=== PATIENT | male | born 1995 | race Caucasian/White ===

== ENCOUNTER 2019-07-19 18:19 | Emergency (ER) | payer OTHER ==
[~2019-07-19] VITALS: Ht 172.7 cm; Wt 97.5 kg
[2019-07-19 18:29] VITALS: Ht 172.7 cm; Wt 97.5 kg
[2019-07-19 19:08] VITALS: BP 123/58
== END 2019-07-19 19:08 | disposition home or self-care (01) ==
LOC: ED 18:19
DX: S93.401A Sprain of unspecified ligament of right ankle, initial encounter (principal); S90.121A Contusion of right lesser toe(s) without damage to nail, initial encounter; X50.1XXA Overexertion from prolonged static or awkward postures, initial encounter; Y93.01 Activity, walking, marching and hiking; Y92.89 Other specified places as the place of occurrence of the external cause; Y99.8 Other external cause status